=== PATIENT | male | born 1955 | race Caucasian/White ===

== ENCOUNTER → 2016-10-06 | Outpatient (CLI) | payer BC ==
[~2016-10-06] MED LIST: AMOX875T PO; ASPCH81X PO; ATOR-24 PO; BNC/20125 PO; LIPITOR PO; MELO7.5T6 PO; OXYC1TAB3 PO; TAMS0.4C38 PO
--- NOTE | 2016-10-06 17:24 | DIAGNOSTIC IMAGING REPORT ---
RIGHT KNEE 1 OR 2 VIEWS ROUTINE CLINICAL HISTORY: Right knee pain COMPARISON: None. DISCUSSION: There are moderate osteoarthritic changes present with moderate medial joint compartment narrowing. There is equivocal corticated bony fragment projected superior to the lateral tibial spine. There are degenerative changes within the patellofemoral joint. There is no dislocation. There are no acute fractures. There is a probable trace joint effusion IMPRESSION: Moderate osteoarthritic changes most pronounced involving the medial joint compartment and patellofemoral joint. Electronically signed by: Nicholas Galaviz M.D. 10/06/2016 5:23 PM Dictated Date/Time: 10/06/2016 5:21 PM
== END | disposition home or self-care (01) ==
LOC: C.RAD 16:50
PROVIDERS: ATTEND Family Medicine
DX: M25.561 Pain in right knee (principal); M17.11 Unilateral primary osteoarthritis, right knee

== ENCOUNTER 2017-02-11 17:21 | Emergency (ER) | payer BC ==
[~2017-02-11] VITALS: Ht 182.9 cm; Wt 108.9 kg
[~2017-02-11 17:21] MED LIST changes: -AMOX875T PO; -ATOR-24 PO; -OXYC1TAB3 PO
[2017-02-11 17:26] VITALS: TEMP 36.7; Ht 182.9 cm; Wt 108.9 kg
[2017-02-11] MEDS ORDERED: OXYMETAZOLINE HCL 0.05% NA SPR 15 ML BTL ONE (17:35)
[2017-02-11] MEDS ORDERED: LIDOCAINE 4% W/AFRIN NASAL SOLN 4ML EXT STA (17:40)
[2017-02-11] MEDS ORDERED: ATOR-24 PO (17:50)
[2017-02-11] MEDS ORDERED: SODIUM CHLORIDE 0.9% 1000ML 1,000 ML IV STA (18:14)
[2017-02-11] MEDS ORDERED: ONDANSETRON INJ 2 MG/ML 2 ML VIAL IV STA (18:27)
[2017-02-11 18:30] LABS: HEMATOCRIT 43.5 % (42-52); MEAN CELL VOLUME 93.8 fL (80-100); MEAN CORPUSCULAR HEMOGLOBIN 31.3 pg (25-34); MEAN CORPUSCULAR HGB CONC 33.3 g/dl (32-36); MEAN PLATELET VOLUME 11.5 fL (7.4-10.4); PLATELET COUNT 176 K/uL (130-400); RED BLOOD COUNT 4.64 M/uL (4.7-6.1); WHITE BLOOD COUNT 8.69 K/uL (4.8-10.8)
[2017-02-11 18:41] LABS: INR 0.9 (0.9-1.1)
[2017-02-11 18:46] LABS: BASO % 0.3 %; BASO ABS # 0.03 K/uL (0-0.2); COMPLETE YES; EOS % 1.8 %; IG% 0.2 %; LYMPH % 26.9 %; LYMPH ABS # 2.34 K/uL (1.2-3.4); MONO % 9.9 %; NEUT % 60.9 %
[2017-02-11 18:52] LABS: BUN/CREATININE RATIO 23.2 (10-20); CREATININE 0.96 mg/dl (0.60-1.40); POTASSIUM 3.9 mmol/L (3.5-5.1)
--- NOTE | 2017-02-11 19:13 | EMERGENCY ROOM VISIT NOTE ---
History Report prepared by Tracy: Ira Cornejo Under the Supervision of: Dr. Beau Dooley M.D. First contact with patient: 17:39 Chief Complaint: NOSE BLEED (MINOR) Stated Complaint: NOSE BLEED,HEADBUTTED BY DOG History of Present Illness The patient is a 61 year old male who presents to the Emergency Room with complaints of an episode of a severe nose bleed stating prior to arrival. The patient states that yesterday he was taking care of his sick dog and scared him. He reports that when he spooked him, his dog head-butted him in the nose. He states that it took a while, but he was able to get it to stop. He reports that today he blew his nose and it started bleeding again today. He states he came to the ED because he couldn't get the bleeding to stop this time. He notes that he takes Aspirin daily. He notes that he is experiencing pain up inside of his nose. He complains of lightheadedness. Source of History: patient Onset: prior to arrival Position: nose Symptom Intensity: severe Timing: other (episode) Note: The patient complains of pain up inside of his nose and being lightheaded. Review of Systems See HPI for pertinent positives & negatives. A total of 10 systems reviewed and were otherwise negative. Past Medical & Surgical Medical Problems: (1) Emphysema, unspecified (2) Hypertension Family History FHx: hypertension Social History Smoking Status: Former Smoker Smokeless Tobacco Use: No Alcohol Use: occasionally Marital Status: Housing Status: lives with significant other Occupation Status: employed Current/Historical Medications Scheduled Amoxicillin & Pot Clavulanate (Augmentin 875-125 mg), 1 TAB PO BID Aspirin (Aspirin Chewable), 81 MG PO QPM Atorvastatin (Lipitor), 1 TAB PO DAILY Meloxicam (Mobic), 7.5 MG PO QAM Olmesartan/Hctz (Benicar Hct 20/12.5), 0.5 TAB PO QPM Tamsulosin Hcl (Flomax), 2 TAB PO QPM Scheduled PRN Oxycodone Immediate Rel Tab (Roxicodone Ir), 1-2 TAB PO Q4H PRN for Severe Pain Allergies Coded Allergies: No Known Allergies (Unverified , 02/11/17) Physical Exam Vital Signs Date Time Temp Pulse Resp B/P Pulse Ox O2 Delivery O2 Flow Rate FiO2 5/28/17 18:49 72 02/11/17 18:33 80 16 156/95 96 Room Air 02/11/17 17:26 36.7 91 18 166/100 95 Room Air Physical Exam GENERAL: Patient is a healthy-appearing well-nourished HEAD: Normocephalic atraumatic. Diffusley bleeding anterior right side of nose. EYES: Ocular movements intact pupils equal and react to light OROPHARYNX mucous membranes are moist no exudates present no erythema or edema present. Blood running down oropharynx. NECK: Supple no nuchal rigidity CHEST: Good equal expansion LUNGS: Clear and equal to auscultation CARDIAC: Normal S1 and S2 ABDOMEN: Soft nontender no guarding BACK: No CVA tenderness EXTREMITIES: No pain upon palpation normal muscle strength in all groups no clubbing cyanosis or edema NEURO: Patient is following commands is answering questions appropriately. Alert and oriented x3 Cranial Nerves 2-12 grossly intact Medical Decision & Procedures Laboratory Results 02/11/17 18:15 Red Blood Count 4.64, Mean Corpuscular Volume 93.8, Mean Corpuscular Hemoglobin 31.3, Mean Corpuscular Hemoglobin Concent 33.3, Mean Platelet Volume 11.5, Neutrophils (%) (Auto) 60.9, Lymphocytes (%) (Auto) 26.9, Monocytes (%) (Auto) 9.9, Eosinophils (%) (Auto) 1.8, Basophils (%) (Auto) 0.3, Neutrophils # (Auto) 5.28, Lymphocytes # (Auto) 2.34, Monocytes # (Auto) 0.86, Eosinophils # (Auto) 0.16, Basophils # (Auto) 0.03 02/11/17 18:15 Test 02/11/17 18:15 White Blood Count 8.69 K/uL (4.8-10.8) Red Blood Count 4.64 M/uL (4.7-6.1) Hemoglobin 14.5 g/dL (14.0-18.0) Hematocrit 43.5 % (42-52) Mean Corpuscular Volume 93.8 fL (80-100) Mean Corpuscular Hemoglobin 31.3 pg (25-34) Mean Corpuscular Hemoglobin Concent 33.3 g/dl (32-36) Platelet Count 176 K/uL (130-400) Mean Platelet Volume 11.5 fL (7.4-10.4) Neutrophils (%) (Auto) 60.9 % Lymphocytes (%) (Auto) 26.9 % Monocytes (%) (Auto) 9.9 % Eosinophils (%) (Auto) 1.8 % Basophils (%) (Auto) 0.3 % Neutrophils # (Auto) 5.28 K/uL (1.4-6.5) Lymphocytes # (Auto) 2.34 K/uL (1.2-3.4) Monocytes # (Auto) 0.86 K/uL (0.11-0.59) Eosinophils # (Auto) 0.16 K/uL (0-0.5) Basophils # (Auto) 0.03 K/uL (0-0.2) RDW Standard Deviation 43.9 fL (36.4-46.3) RDW Coefficient of Variation 12.8 % (11.5-14.5) Immature Granulocyte % (Auto) 0.2 % Immature Granulocyte # (Auto) 0.02 K/uL (0.00-0.02) Prothrombin Time 10.0 SECONDS (9.0-12.0) Prothromb Time International Ratio 0.9 (0.9-1.1) Anion Gap 8.0 mmol/L (3-11) Est Creatinine Clear Calc Drug Dose 101.7 ml/min Estimated GFR () 97.8 Estimated GFR (Non- 84.4 BUN/Creatinine Ratio 23.2 (10-20) Calcium Level 9.0 mg/dl (8.5-10.1) Total Bilirubin 0.9 mg/dl (0.2-1) Direct Bilirubin 0.2 mg/dl (0-0.2) Aspartate Amino Transf (AST/SGOT) 17 U/L (15-37) Alanine Aminotransferase (ALT/SGPT) 34 U/L (12-78) Alkaline Phosphatase 71 U/L (45-117) Total Protein 7.3 gm/dl (6.4-8.2) Albumin 3.7 gm/dl (3.4-5.0) Lipase 127 U/L (73-393) Labs reviewed by ED physician. Medications Administered Medications (Trade) Dose Ordered Sig/Francisco Javier Route Start Time Stop Time Status Last Admin Dose Admin Oxymetazoline HCl 75 sprays 75 sprays STK-MED ONCE .ROUTE 02/11/17 17:35 02/11/17 17:36 DC 02/11/17 17:41 75 SPRAYS Sodium Chloride (Nss 1000ml) 1,000 ml @ 999 mls/hr Q1H1M STAT IV 02/11/17 18:14 02/11/17 19:14 DC 02/11/17 18:40 999 MLS/HR Ondansetron HCl (Zofran Inj) 4 mg NOW STAT IV 02/11/17 18:27 02/11/17 18:28 DC 02/11/17 18:40 4 MG ECG Indication: syncope Rate (beats per minute): 74 Rhythm: normal sinus Findings: RBBB, no acute ischemic change, no ectopy Comparison ECG Date: 05/30/2011 Change: no significant change ED Course 1735: Ordered Dxymetazoline HCl 2 sprays .ROUTE. 174: Ordered Lidocaine HCl 4 ml EXT. 174: Past medical records reviewed. The patient was evaluated in room B3. A complete history and physical examination was performed. 1813: Ordered NSS 1000 ml @ 999 mls/hr IV. 1826: Ordered Zofran Inj 4 mg IV. 1830: I reevaluated the patient and he is doing okay. 1833: I discussed the patient's case with Dr. Bradford. He has agreed to come see and evaluate the patient. 1934: Ordered Sodium chloride 2 sprays INH. 1944: Ordered Oxycodone HCl 1 homepack PO, Augmentin Tab 875 mg PO. 1999: Upon reexamination the patient is resting comfortably. I discussed results and treatment plan with the patient. She verbalizes agreement and understanding. The patient is ready for discharge. 2100: Ordered Augmentin Tab 875 mg PO. Medical Decision Medication Reconciliation: I attest that I have personally reviewed the patient' s current medication list. Blood Pressure Screening: Patient was found to have an elevated blood pressure and was referred to their primary care doctor for recheck and further treatment. Differential diagnosis: Etiologies such as anterior epistaxis, coagulopathy, traumatic injury, fracture , septal hematoma, posterior epistaxis as well as other pathologies were entertained. This is a 61-year-old male patient presents here she department after being head butted by his dog. I tried conservative measures at first to try and stop the bleeding however the patient bled right through tissues Afrin and epinephrine. At this point I tried to place an anterior posterior rapid right now as the patient continue to bleed however the patient had a vasovagal episode in the room and passed out. For this reason he was placed in the bed and an IV was established. Blood work was obtained the patient's hemoglobin is stable and he's got a normal creatinine. He was observed in the emergency department for 2 hours after his vasovagal episode. I did discuss the case with Dr. Bradford please see his note. I can place the patient on Augmentin. Consults Time Called: 1831 Consulting Physician: Dr. Teddy Nunn Returned Call: 1833 I discussed the patient's case with Dr. Bradford. He has agreed to come see and evaluate the patient. Impression Primary Impression: Epistaxis Additional Impressions: Hypertension Vasovagal episode Scribe Attestation The scribe's documentation has been prepared under my direction and personally reviewed by me in its entirety. I confirm that the note above accurately reflects all work, treatment, procedures, and medical decision making performed by me. Departure Information Dispostion Home / Self-Care Prescriptions Oxycodone Immediate Rel Tab (ROXICODONE IR) 5 Mg Tab 1-2 TAB PO Q4H Y for Severe Pain, #14 TAB Prov: Beau Dooley MD 02/11/17 Amoxicillin & Pot Clavulanate (Augmentin 875-125 mg) 1 Tab Tab 1 TAB PO BID for 7 Days, #14 TAB Prov: Beau Dooley MD 02/11/17 Referrals Oswaldo Foreman M.D. (PCP) Forms HOME CARE DOCUMENTATION FORM, IMPORTANT VISIT INFORMATION, WORK / SCHOOL INSTRUCTIONS Patient Instructions [facility] Additional Instructions - discharge home on pain medication per ED - recommend ED discharge home on antibiotic (augmentin for 1 week) - no nose blowing - sneeze with mouth open - saline spray starting tomorrow every 2 hrs while awake Follow up with Dr Bradford's office You were found to have an elevated blood pressure today (>120 sytolic or >90 diastolic). Per medicare guidelines, you need to follow up with this blood pressure screening with your Primary Care Physician (PCP). For a new PCP call [phone]. You received narcotic or benzodiazepene medication while in the emergency room today. Do not drive, operate heavy machinery, or drink alcohol under the influence of this medication. Take 1000 mg Tylenol every 6 hours Take oxy IR for breakthrough pain You have been examined and treated today on an emergency basis only. This is not a substitute for, or an effort to provide, complete comprehensive medical care. It is impossible to recognize and treat all injuries or illnesses in a single emergency department visit. It is therefore important that you follow up closely with Dr Foreman. Call as soon as possible for an appointment. Thank you for your time and consideration. I look forward to speaking with you again soon. Please don't hesitate to call us if you have any questions. Problem Qualifiers Additional Impressions: Hypertension Hypertension type: essential hypertension Qualified Codes: I10 - Essential ( primary) hypertension
--- NOTE | 2017-02-11 19:16 | Medical Consult ---
Consultation Date of Consultation: February 11, 2017. Attending Physician: History of Present Illness 61 yo male who was headbutted by his dog yesterday, which caused a nose bleed. Patient able to get it stopped. Was doing well until early this evening when he blew his nose and nosebleed started again. He came to the ED where apparently a balloon pack was attempted to be placed but was unable to be placed by the ED. Patient takes baby ASA daily. No other blood thinner. Denies any other symptoms. Denies any alleviating or exacerbating factors. Location of the bleed is right nare. Timing is intermittent. reports bleeding was fairly profuse. Family History FHx: hypertension Social History Smoking Status: Former Smoker Allergies Coded Allergies: No Known Allergies (Unverified , 02/11/17) Current Inpatient Medications Current Inpatient Medications Medications (Trade) Dose Ordered Sig/Francisco Javier Route Start Time Stop Time Status Last Admin Dose Admin Sodium Chloride (Nss 1000ml) 1,000 ml @ 999 mls/hr Q1H1M STAT IV 02/11/17 18:14 02/11/17 19:14 02/11/17 18:40 999 MLS/HR Review of Systems Constitutional: No chills, No fatigue, No fever, No problem reported, No sweats , No weakness, No weight loss Eyes: No diplopia, No discharge, No eye pain, No problem reported, No redness, No worsening of vision ENT: + problem reported (see HPI) Respiratory: No cough, No dyspnea at rest, No dyspnea on exertion, No hemoptysis, No problem reported, No shortness of breath, No sputum, No wheezing Cardiovascular: No PND, No chest pain, No claudication, No edema, No orthopnea , No palpitations, No problem reported Abdomen: No GI bleeding, No constipation, No diarrhea, No nausea, No pain, No problem reported, No vomiting Musculoskeletal: No calf pain, No joint pain, No muscle pain, No problem reported, No swelling Neurologic: No balance problems, No memory loss, No numbness/tingling, No paralysis, No problem reported, No vertigo, No weakness Hematologic / Lymphatic: No abnormal bleeding/bruising, No clotting problems, No night sweats, No problem reported, No swollen lymph nodes Physical Exam Date Time Temp Pulse Resp B/P Pulse Ox O2 Delivery O2 Flow Rate FiO2 5/28/17 18:49 72 02/11/17 18:33 80 16 156/95 96 Room Air 02/11/17 17:26 36.7 91 18 166/100 95 Room Air Procedure Attention was directed to the right nostril. The clot was evacuated with suction under headlight guidance. At this point several pieces of fibrillar were placed into the nose along the lateral nasal wall in the vicinity of the SPA and posterior to this. Further pieces were placed anteriorly. Floseal was then applied to the nose. Patient tolerated procedure well. General Appearance: WD/WN, no apparent distress Head: normocephalic, atraumatic Eyes: normal inspection, PERRL, EOMI ENT: + pertinent finding (right nare with dried blood. Anterior rhinoscopy revealed mildly deviated septum to the right side. Clot was evacuated from the nose. Some mild oozing from a septal abrasaion anteriorly. No evidence currently of profuse bleeding at this time. Posterior pharyngeal wall with old blood, no fresh blood. ) Neck: supple, thyroid normal Respiratory/Chest: normal breath sounds, no respiratory distress Skin: normal color, warm/dry Lymphatic: no adenopathy Laboratory Results Last 24 Hours Test 02/11/17 18:15 White Blood Count 8.69 K/uL Red Blood Count 4.64 M/uL Hemoglobin 14.5 g/dL Hematocrit 43.5 % Mean Corpuscular Volume 93.8 fL Mean Corpuscular Hemoglobin 31.3 pg Mean Corpuscular Hemoglobin Concent 33.3 g/dl Platelet Count 176 K/uL Mean Platelet Volume 11.5 fL Neutrophils (%) (Auto) 60.9 % Lymphocytes (%) (Auto) 26.9 % Monocytes (%) (Auto) 9.9 % Eosinophils (%) (Auto) 1.8 % Basophils (%) (Auto) 0.3 % Neutrophils # (Auto) 5.28 K/uL Lymphocytes # (Auto) 2.34 K/uL Monocytes # (Auto) 0.86 K/uL Eosinophils # (Auto) 0.16 K/uL Basophils # (Auto) 0.03 K/uL RDW Standard Deviation 43.9 fL RDW Coefficient of Variation 12.8 % Immature Granulocyte % (Auto) 0.2 % Immature Granulocyte # (Auto) 0.02 K/uL Prothrombin Time 10.0 SECONDS Prothromb Time International Ratio 0.9 Sodium Level 143 mmol/L Potassium Level 3.9 mmol/L Chloride Level 108 mmol/L Carbon Dioxide Level 27 mmol/L Anion Gap 8.0 mmol/L Blood Urea Nitrogen 22 mg/dl Creatinine 0.96 mg/dl Est Creatinine Clear Calc Drug Dose 101.7 ml/min Estimated GFR () 97.8 Estimated GFR (Non- 84.4 BUN/Creatinine Ratio 23.2 Random Glucose 119 mg/dl Calcium Level 9.0 mg/dl Total Bilirubin 0.9 mg/dl Direct Bilirubin 0.2 mg/dl Aspartate Amino Transf (AST/SGOT) 17 U/L Alanine Aminotransferase (ALT/SGPT) 34 U/L Alkaline Phosphatase 71 U/L Total Protein 7.3 gm/dl Albumin 3.7 gm/dl Lipase 127 U/L Assessment & Plan 61 yo male with epistaxis - controlled as above - discharge home on pain medication per ED - recommend ED discharge home on antibiotic (augmentin for 1 week) - no nose blowing - sneeze with mouth open - saline spray starting tomorrow every 2 hrs while awake
[2017-02-11] MEDS ORDERED: SODIUM CHLORIDE 0.65% NA SOLN 45 ML (OCEAN) STA (19:35)
[2017-02-11] MEDS ORDERED: AMOX875T PO (19:44)
[2017-02-11] MEDS ORDERED: OXYC1TAB3 PO (19:44)
[2017-02-11] MEDS ORDERED: OXYCODONE IR HOME PACK PO ONE (19:45)
[2017-02-11] MEDS ORDERED: AMOXICILLIN/CLAVULANATE TAB 875 MG TAB PO ONE ×2 (19:45→21:00)
[2017-02-11] MEDS ORDERED: EMPTY 8 DRAM VIAL ONE (19:58)
[2017-02-11 20:29] VITALS: BP 150/90; PULSE 81; O2SAT 95
== END 2017-02-11 20:31 | disposition home or self-care (01) ==
LOC: C.EDB 17:22
DX: R04.0 Epistaxis (principal); R55 Syncope and collapse; I10 Essential (primary) hypertension; J43.9 Emphysema, unspecified; Z82.49 Family history of ischemic heart disease and other diseases of the circulatory system; Z87.891 Personal history of nicotine dependence; Z79.82 Long term (current) use of aspirin; Z79.899 Other long term (current) drug therapy

== ENCOUNTER → 2017-02-27 | Outpatient (CLI) | payer BC ==
[~2017-02-27] MED LIST changes: +ATOR-24 PO; -LIPITOR PO; +OXYC1TAB3 PO
--- NOTE | 2017-02-28 06:20 | PAP/PSG TECHNICIAN REPORT ---
[facility] Java Application Developer Polysomnogram Report Study name: None Report date: 02/28/2017 Study date: 02/27/2017 Referring Physician: Duglas Alvarez M.D. Name: YANELI WILKES Interpreting Physician: Iker Smith D.O. Date of : 1955 Java Application Developer: Joie Johnson [facility]. Sex: Male Age: 61 StudyType: PSG PAP Weight: 248 lbs Height: 61 years, Height 5' 10" BMI: 35.58 Medications: Aspirin 81 mg, Flomax 0.4 mg, Benicar HCT, Aleve 220 mg, Atorvastatin 40 mg, Voltaren 1% Patient History 61 yr. old male here old male here for an updated titration sleep study. Patient has gained 20 pounds since last titration sleep study. Patients [place] Sleepiness Scale score is 5/24. Parameters Monitored NPSG: E1-M2, E2-M1, Fp1-M2, Fp2-M1, F3-M2, F4-M2, F4-M1, C3-M2, C4-M2, C4-M1, O1-M2, O2-M2, O2-M1, T3-M2, T4-M1, P3-M2, P4-M1, CHIN1, CHIN2, HR, EKG, Legs, PFLOW, SNOR, FLOW, CFLOW, Tidal Volume, THOR, ABDO, SpO2, PLTH, CPRESS, ETCO2 Wave, ETCO2, pH Sleep Architecture Sleep Stages Time at Lights Off 9:24:40 PM STAGES Time (min.) TST (%) Time at Lights On 5:41:40 AM Wake 96.5 -- Total Recording Time (TRT) 497.00 min. N1 42.5 11 Total Sleep Period (TSP) 482.0 min. N2 210.0 52 Total Sleep Time (TST) 400.5min. N3 43.0 11 Awake Time 96.5 min. REM 105.0 26 Wake after Sleep Onset 81.5 min. Sleep Efficiency (SE) 81 % Sleep Onset Latency (LAURA) 15.0 min. Number of Stage 1 Shifts None Awakenings 25 Stage Changes 105 Number of REM periods 16 REM 105.0 26 REM Latency 50.0 min. NREM 295.5 74 Body Position Analysis Supine Right Left Side Prone Vertical Total Sleep Time (min.) 146.0 214.6 62.4 277.00 0.0 0.0 Total Sleep Time (%) 31% 54% 16% 69 0% N/A% Total Sleep Time REM (min.) 50.5 50.5 4.0 None 0.0 0.0 Total Sleep Time NREM (min.) 73.0 164.1 58.4 None 0.0 0.0 Intermittent Wake (min.) 22.5 58.7 15.2 None 0.0 0.0 Total Sleep Period (%) 30% None None None None None Arousals Myoclonus (PLM) * Events Count Index Events Count Index Spontaneous 4 1 Events Awake (PLMW) 106 65.9 Respiratory 2 0.3 Events Asleep w/ Arousal (PLMA) 26 3.9 PLM 26 4 Events Asleep w/o Arousal (PLMS) 667 99.9 Snoring 2 0 Total Asleep 693 103.8 Total 34 5 Total 799 96 Respiratory Analysis * CA OA MA CH H RERA Total Count 0 2 0 0 11 0 13 Index 0.0 0.3 0.0 0 1.6 0 1.9 Mean Duration 0.0 16.4 0.0 0.00 28.2 0.0 26.4 Longest Duration 0.0 17.6 0.0 0.00 0.0 0.0 47.1 Respiratory Event Summary Total Supine ~Supine Right Left Prone REM NREM Apneas Count 2 0 2 2 0 N/A 0 2 Index 0.3 0 0 0.6 0.0 N/A 0 0 Hypopneas (4% Desat) Count 11 0 11 8 3 N/A 7 4 Index 1.6 0.0 2 2.2 2.9 N/A 4.0 0.8 Apneas & All Hypopneas Count 13 0 13 10 3 N/A 7 6 Index 1.9 0 3 3 3 N/A 4.0 1.2 Respiratory Events (Knurling Machine Tender+All Hyp+RERA) Count 13 0 13 10 3 N/A 7 6 Index 1.9 0 3 2.8 2.9 N/A 4.0 1.2 Respiratory Related Arousal Count 2 0 2 2 0 N/A 0 2 Index 0.3 0 0 1 0 N/A 0 0 Snoring Analysis Supine Right Left Prone REM NREM Total Snore duration 5.4 min Snores count 18 176 19 N/A 15 198 213 Snore mean duration 1.5 Sec Snores index 9 49 18 N/A 8.6 40.2 31.9 TST with snoring (%) 1.3% Desaturation Event Summary: Minimum %SpO2 Event Count Mean/Min/Max Duration(sec.) Desaturation Index % Time In Bed > 90 28 33.6 / 7.5 / 60.0 3.5 99.2 86 - 90 1 25.8 / 25.8 / 25.8 15.3 0.8 81 - 85 0 N/A 0.0 0.0 76 - 80 0 N/A 0.0 0.0 71 - 75 0 N/A 0.0 0.0 66 - 70 0 N/A 0.0 0.0 61 - 65 0 N/A 0.0 0.0 56 - 60 0 N/A 0.0 0.0 51 - 55 0 N/A 0.0 0.0 < 50 0 N/A 0.0 0.0 Total REM NREM Awake <50% 0.0 min. 0.0 min. 0.0 min. 0.0 min. 51 - 60% 0.0 min. 0.0 min. 0.0 min. 0.0 min. 61 - 70% 0.0 min. 0.0 min. 0.0 min. 0.0 min. 71 - 80% 0.0 min. 0.0 min. 0.0 min. 0.0 min. 81 - 90% 4.0 min. 1.4 min. 1.3 min. 1.3 min. 91 - 100% 486.9 min. 103.6 min. 294.2 min. 89.1 min. Average 95 95 95 95 Minimum SpO2 78 88 84 78 Desaturation Event Index 3.4 4.6 0.8 9.9 # Desat. Events below 89% 4 1 1 2 Time(%) with Saturation below 89% 0.2 0.1 0.1 0.1 Time(min.) with Saturation below 89% 1.1 0.3 0.4 0.4 Time (mins) REM (mins) NREM (mins) % of TST SpO2 Below 90% 5 2 N3 0.4 SpO2 Below 88% 2 0 0 0 Heart Rate Analysis Min (bpm) Max (bpm) Average (bpm) Awake 47 127 69 NREM 47 84 55 REM 45 73 52 Overall 45 84 54 Supplemental O2 Values Minimum O2 level: None Value Start Time End Time Java Application Developer Comments slept in the right, left, and supine positions. Cardiac arrhythmia and frequent PLMs noted. No bruxism noted. CPAP was initiated at +4 CMH2O room air and up-titrated to an optimal level of +7 CMH2O Cflex 1, which nearly eliminated all respiratory events and snoring. A standard ResMed Brown FX ResMed was used during titration. awoke to use the restroom once during the night. stated, that was a normal night. The final report will be interpreted and signed by a sleep physician. The completed physician report will then be placed in the patient medical record. Therapy Event: Therapy (cm H20) 4 5 6 7 Total Time at Pressure (min.) 70.9 84.9 148.1 193.0 TST at Pressure (min.) 51.0 38.9 141.1 169.5 # Periods 1 1 1 1 Sleep Onset (min.) 14.9 3.0 0.0 0.0 REM Onset (min.) 64.9 N/A 17.1 41.5 Sleep Efficiency % 72 45 95 87 Wakefulness (%) 28.0 54.2 4.7 12.2 Wakefulness (min.) 19.9 46.0 7.0 23.5 NREM 1 (%) 4.9 10.0 8.8 9.1 NREM 1 (min.) 3.5 8.5 13.0 17.5 NREM 2 (%) 24.7 35.8 43.3 50.8 NREM 2 (min.) 17.5 30.4 64.1 98.0 NREM 3 (%) 36.7 0.0 11.5 0.0 NREM 3 (min.) 26.0 0.0 17.0 0.0 REM (%) 5.6 0.0 31.7 28.0 REM (min.) 4.0 0.0 47.0 54.0 # Arousals 2 6 11 15 Arousal Index 2.4 9.3 4.7 5.3 # Snore 1 26 116 70 Snore Index 1.2 40.1 49.3 24.8 AHI 3.5 3.1 3.4 0.0 AHI Supine N/A N/A N/A 0.0 AHI Non-Supine 3.5 3.1 3.4 0.0 NREM AHI 0.0 3.1 2.6 0.0 REM AHI 45.0 N/A 5.1 0.0 RDI 3.5 3.1 3.4 0.0 # Obstructive 0 1 1 0 # Central Ap 0 0 0 0 # Mixed 0 0 0 0 # Hypopneas 3 1 7 0 RERAS 0 0 0 0 Total Respiratory Events 3 2 8 0 Time Below SpO2 89.00% (min.) 0.3 0.0 0.4 0.0 Mean NREM SpO2 (%) 93 94 95 95 Mean REM SpO2 (%) 91 N/A 94 95 Mean Sleep SpO2 (%) 93 94 95 95 Min NREM SpO2 (%) 92 89 84 93 Min REM SpO2 (%) 88 N/A 91 92 Position Supine (min.) 0.0 0.0 0.0 123.5 Position Non-supine (min.) 51.0 38.9 141.1 46.0 LM Index Sleep 105.9 158.9 144.6 56.6 LM Index NREM 106.0 158.9 175.4 63.9 LM Index REM 105.0 N/A 83.0 41.1 Mean Heart Rate (bpm) 61 60 53 52 Min Heart Rate (bpm) 55 51 46 45
--- NOTE | 2017-03-02 08:12 | POLYSOMNOGRAPH REPORT ---
PRIMARY CARE PHYSICIAN: Oswaldo Foreman MD REFERRING PHYSICIAN: Dr. Alvarez. CLINICAL DATA: The patient is a 61-year-old male with a history of sleep apnea. He has been on nasal CPAP therapy. It is unknown what his pressures are set at. He has a history of pulmonary hypertension. The patient has gained 20 pounds. He has a history of fatigue. His [place] score is 5/24. This study was an in-lab CPAP retitration. His current BMI is 35.58. SLEEP ARCHITECTURE: The total sleep period was 482 minutes. The total sleep time was 400.5 minutes. The sleep efficiency was mildly reduced at 81%. The sleep latency was normal at 15 minutes. Wake after sleep onset was increased to 81.5 minutes. The REM latency was slightly shorter than normal at 50 minutes. Sleep consisted of stage N1 of 11%, stage N2 of 52%, stage N3 of 11%, and stage REM 26%. AROUSAL DATA: The patient had a total of 34 arousals including 4 spontaneous arousals, 2 respiratory arousals, 26 PLM arousals, and 2 snoring arousals. The arousal index is 5. PLM DATA: The patient had a total of 693 periodic limb movements for an index severely elevated at 103.8. There were 26 arousals related to the limb movements for a PLM arousal index of 3.9. EKG: The underlying cardiac rhythm was normal sinus. He had occasional PVCs. The cardiac rates ranged from 45 to 84 beats per minute with an average of 54 beats per minute. RESPIRATORY DATA: The patient's nocturnal events were treated with nasal CPAP. He had a total of 13 respiratory events including 2 obstructive apneas and 11 hypopneas. Hypopneas were scored according to the 4% desaturation rule. The apnea-hypopnea index was normal at 1.9 events per hour. The longest apnea was 17.6 seconds. The mean duration of hypopnea was 28.2 seconds. OXIMETRY DATA: The average saturation was 95%. The minimum saturation was 78%. This is likely technical and not valid. There was a total of 2 minutes less than 88% and this is likely felt to be technical as well. Overall, the oxygenation appeared to be normal. 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 Cardiac arrhythmia and frequent PLMs were noted. No bruxism noted. CPAP was initiated at 4 cm of water pressure at room air and up titrated to an optimal level of 7 cm with C-Flex 1. This eliminated the respiratory events and snoring. A standard ResMed Brown FX was used during titration. IMPRESSIONS: 1. Obstructive sleep apnea -- resolved with nasal CPAP at 7 cm. 2. Periodic limb movement disorder -- severe. 3. Cardiac arrhythmia -- occasional premature ventricular contraction. COMMENTS: The patient had just a mild decrease in sleepy efficiency. He titrated very easily up to his final pressure. At the final pressure of 7 cm, he had no respiratory events over 3 hours of time. His apnea hypopnea index was 0 at the final pressure. His oxygenation was normal. He did have very frequent periodic limb movements. Clinical correlation is advised in this regard. As noted previously, it is unknown what his prior CPAP pressures were set at, but 7 cm clearly seems to be more than adequate. RECOMMENDATIONS: 1. It is advised that the nasal CPAP be set at 7 cm with a C-Flex of 1. 2. It is advised that he have compliance data obtained in 1-2 months to be certain that he is wearing his CPAP regularly and that his sleep apnea is being resolved. 3. The patient has frequent limb movements during sleep, but with few arousals. It is advised that he have a serum ferritin level to evaluate for the possibility of iron deficiency, which may be contributing to the limb movements. 4. The patient has an elevated body mass index of 35.58. A weight reduction program as advised. 5. It is suggested that the patient avoid sleeping in the supine position as there typically is more respiratory event supine. During this study, he spent 30% of the night in the supine position. 6. If the patient needs a new mask, it would be suggested that he be prescribed a ResMed Brown FX mask. [facility]
== END | disposition home or self-care (01) ==
LOC: C.NEUR 21:00
PROVIDERS: ATTEND Internal Medicine Critical Care Medicine
DX: G47.33 Obstructive sleep apnea (adult) (pediatric) (principal)

== ENCOUNTER → 2018-01-25 | Day surgery (SDC) | payer OTHER ==
[2018-01-15 14:17] VITALS: BMI 33.0
[~2018-01-25] VITALS: Ht 182.9 cm; Wt 111.4 kg
[~2018-01-25] MED LIST changes: -BNC/20125 PO; +DICL1GEL12 TD; +LIDOCAINE HCL 2% 2 ML VIAL (20MG/ML) ONE; +LOSA100T33 PO; +MIDAZOLAM HCL 1 MG/ML 2ML VIAL ONE; -OXYC1TAB3 PO; +PROPOFOL IV EMULSION 10 MG/ML 20 ML VIAL ONE
[2018-01-25 13:29] VITALS: Ht 182.9 cm; Wt 111.4 kg
--- NOTE | 2018-01-25 13:46 | Endo History and Physical ---
History & Physical Date of Service: January 25, 2018. Chief Complaint: Hx polyps Referring Physician: Dr Foreman History of Present Illness For colonoscopy Past Surgical History Hx Cardiac Surgery: No Hx Internal Defibrillator: No Hx Pacemaker: No Hx Abdominal Surgery: No Hx of Implantable Prosthesis: No Hx Post-Op Nausea and Vomiting: No Hx Cancer Surgery: No Hx Thoracic Surgery: No Hx Orthopedic: Yes (RT KNEE TUMOR EXCISION) Hx Urinary Tract Surgery: No Family History None Social History Smoking Status: Former Smoker Hx Substance Use: Yes (MARIJUANA IN YOUNGER YEARS, NONE CURRENTLY) Hx Alcohol Use: Yes (1-2 GLASSES OF WINE DAILY) Allergies Coded Allergies: No Known Allergies (Unverified , 01/25/18) Current Medications Reported Home Medications Medications Dose Route/Sig Max Daily Dose Days Date Category Voltaren 1% Top Gel (Diclofenac Sodium (Topical)) 1 % Gel TD DIRECTED 01/15/18 Reported Hyzaar 12.5MG/100MG (Hctz/Losartan) 1 Tab Tab 1 Tab PO DAILY 30 01/15/18 Reported Lipitor (Atorvastatin Calcium) 40 Mg Tab 1 Tab PO DAILY 02/11/17 Reported Mobic (Meloxicam) 7.5 Mg Tab 7.5 Mg PO QAM 08/08/16 Reported Aspirin Chewable (Aspirin) 81 Mg Chew 81 Mg PO QPM 08/08/16 Reported Flomax (Tamsulosin Hcl) 0.4 Mg Cap 2 Tab PO QPM 08/08/16 Reported Vital Signs Weight (Kilograms): 111.36 Height (Feet): 6 Height (Inches): 0 Physical Exam General Appearance: WD/WN Respiratory/Chest: Respiratory effort: no dyspnea Cardiovascular: Heart Auscultation: RRR Abdomen: Inspection & Palpation: soft Assessment and Plan Hx polyps for colonoscopy
--- NOTE | 2018-01-25 14:21 | Discharge Instructions ---
Endoscopy Patient Instructions Date / Procedure(s) Performed January 25, 2018. Colonoscopy Allergy Information Coded Allergies: No Known Allergies (Unverified , 01/25/18) Discharge Date / Findings January 25, 2018. polyps, diverticulosis Medication Instructions Restart Stopped Medication(s): resume meds Reported Home Medications Medications Dose Route/Sig Max Daily Dose Days Date Category Voltaren 1% Top Gel (Diclofenac Sodium (Topical)) 1 % Gel TD DIRECTED 01/15/18 Reported Hyzaar 12.5MG/100MG (Hctz/Losartan) 1 Tab Tab 1 Tab PO DAILY 30 01/15/18 Reported Lipitor (Atorvastatin Calcium) 40 Mg Tab 1 Tab PO DAILY 02/11/17 Reported Mobic (Meloxicam) 7.5 Mg Tab 7.5 Mg PO QAM 08/08/16 Reported Aspirin Chewable (Aspirin) 81 Mg Chew 81 Mg PO QPM 08/08/16 Reported Flomax (Tamsulosin Hcl) 0.4 Mg Cap 2 Tab PO QPM 08/08/16 Reported Provider Instructions Activity Restrictions - No exercising or heavy lifting for 24 hours. - Do not drink alcohol the day of the procedure. - Do not drive a car or operate machinery until the day after the procedure. - Do not make any important decisions or sign important papers in 24 hours after the procedure. Following Day: - Return to full activity which may include returning to work/school. Diet Start your diet with liquids and light foods (jello, soup, juice, toast). Then eat your usual diet if not nauseated. Treatment For Common After Affects For mild abdominal pain, bloating, or excessive gas: - Rest - Eat lightly - Lie on right side Follow-Up Information Follow-up with DR REYNOLDS as scheduled Anesthesia Information What You Should Know You have had a procedure that required some medicine to reduce anxiety and discomfort. This treatment is called moderate sedation. After receiving the treatment, you may be sleepy, but you will be able to breathe on your own. The effects of the treatment may last for several hours. Follow these instructions along with Activity/Diet recommendations noted above: * Do NOT do anything where dizziness or clumsiness would be dangerous. * Rest quietly at home today, then you can be up and about tomorrow. * Have a responsible person stay with you the rest of today. * You may have had an I.V. today. If so, you may take the dressing off later today. Recommendations Call your doctor if: * Trouble breathing * Continuous vomiting for more than 24 hours * Temperature above 101 degrees * Severe abdominal pain or bloating * Pain not relieved by pain medicine ordered * There is increased drainage or redness from any incision * A large amount of rectal bleeding greater than 2-3 tablespoons. (If you had a polyp/s removed or have hemorrhoids, a small amount of blood - from the rectum is to be expected.) * You have any unanswered questions or concerns. IN THE EVENT OF A SERIOUS EMERGENCY, GO TO THE NEAREST EMERGENCY ROOM Your discharge instructions were prepared by provider Olvin Kilpatrick. Patient Instructions Signature Page Denny Schuster Patient (or Guardian) Signature/Date: I have read and understand the instructions given to me by my caregivers. Caregiver/RN/Doctor Signature/Date: The above-named patient and/or guardian has received patient instructions on this date. + Original Patient Signature Page (only) stays with chart. Please make copy for patient.
--- NOTE | 2018-01-25 14:28 | GI REPORT ---
Patient Name: Denny Schuster Procedure Date: 01/25/2018 1:54 PM Date of : 1955 Admit Type: Outpatient Age: 62 Gender: Male Attending MD: Olvin Kilpatrick MD Procedure: Colonoscopy Providers: Olvin Kilpatrick MD Referring MD: Oswaldo Foreman Indications: Personal history of colonic polyps Medicines: Midazolam 2 mg IV, Propofol total dose 200 mg IV, Lidocaine 20 mg IV Complications: No immediate complications. Estimated Blood Loss: Estimated blood loss was minimal. Procedure: Pre-Anesthesia Assessment: - Prior to the procedure, a History and Physical was performed, and patient medications, allergies and sensitivities were reviewed. The patient's tolerance of previous anesthesia was reviewed. - The risks and benefits of the procedure and the sedation options and risks were discussed with the patient. All questions were answered and informed consent was obtained. After I obtained informed consent, the scope was passed under direct vision. Throughout the procedure, the patient's blood pressure, pulse, and oxygen saturations were monitored continuously. The scope was introduced through the anus and advanced to the cecum, identified by appendiceal orifice and ileocecal valve. The colonoscopy was performed without difficulty. The patient tolerated the procedure well. The quality of the bowel preparation was excellent. Findings: Three sessile polyps were found in the ascending colon. The polyps were 2 to 3 mm in size. These polyps were removed with a cold snare. Resection and retrieval were complete. Estimated blood loss was minimal. A few diverticula were found in the sigmoid colon and ascending colon. Impression: - Three 2 to 3 mm polyps in the ascending colon, removed with a cold snare. Resected and retrieved. - Diverticulosis in the sigmoid colon and in the ascending colon. Recommendation: - Discharge patient to home (ambulatory). - Continue present medications. - Await pathology results. - Return to primary care physician PRN. Olvin Kilpatrick M.D. Olvin Kilpatrick MD 01/25/2018 2:27:46 PM This report has been signed electronically. Note Initiated On: 01/25/2018 1:54 PM Number of Addenda: 0 I attest to the content of the Intraoperative Record and orders documented therein, exceptions below {[id number]}
--- NOTE | 2018-01-25 14:38 | Anesthesiology Progress Note ---
Anesthesia Post Op Note Date & Time January 25, 2018 at 14:38 Vital Signs Vital Signs Past 12 Hours Date Time Temp Pulse Resp B/P (MAP) Pulse Ox O2 Delivery O2 Flow Rate FiO2 01/25/18 14:28 36.2 71 20 143/82 (102) 96 Room Air 01/25/18 13:40 36.6 64 20 150/94 (112) 96 Room Air Notes Mental Status: alert / awake / arousable, participated in evaluation Pt Amnestic to Procedure: Yes Nausea / Vomiting: adequately controlled Pain: adequately controlled Airway Patency, RR, SpO2: stable & adequate BP & HR: stable & adequate Hydration State: stable & adequate Anesthetic Complications: no major complications apparent
[2018-01-25 14:58] VITALS: BP 139/87; PULSE 61; O2SAT 97
== END | disposition home or self-care (01) ==
LOC: C.GI 13:00
PROVIDERS: ATTEND Internal Medicine Gastroenterology
DX: Z86.010 Personal history of colon polyps (principal); D12.2 Benign neoplasm of ascending colon; K57.30 Diverticulosis of large intestine without perforation or abscess without bleeding; G47.33 Obstructive sleep apnea (adult) (pediatric); I10 Essential (primary) hypertension; J44.9 Chronic obstructive pulmonary disease, unspecified; Z98.890 Other specified postprocedural states; Z87.891 Personal history of nicotine dependence; Z79.899 Other long term (current) drug therapy; Z79.82 Long term (current) use of aspirin

== ENCOUNTER 2020-02-10 07:56 | Inpatient (IN) ==
--- NOTE | 2019-11-12 15:44 | PAT Medication Instructions ---
Medication Instructions Date of Service November 12, 2019 Home Medications albuterol sulfate 90 mcg/actuation breath activated powder inhaler 2 puffs INH Q4H aspirin 81 mg tablet,delayed release 81 mg PO QAM atorvastatin 40 mg tablet 40 mg PO QPM diclofenac sodium 1 % topical gel 4 gm TOP QID PRN naproxen sodium 220 mg capsule 440 mg PO BID PRN tamsulosin 0.4 mg capsule 0.8 mg PO QAM amlodipine 10 mg PO QDD hydrochlorothiazide 12.5 mg PO QAM lisinopril 40 mg PO QAM meloxicam 15 mg PO QAM tiotropium bromide [Spiriva Respimat] 2 puffs INH QAM ASK your surgeon for instructions meloxicam 15 mg PO QAM naproxen sodium 220 mg capsule 440 mg PO BID PRN STOP taking 24 hours before surgery diclofenac sodium 1 % topical gel 4 gm TOP QID PRN DO NOT take the morning of surgery hydrochlorothiazide 12.5 mg PO QAM lisinopril 40 mg PO QAM Take morning of surgery With a small sip of water, OTHERWISE NOTHING TO EAT OR DRINK AFTER MIDNIGHT: albuterol sulfate 90 mcg/actuation breath activated powder inhaler 2 puffs INH Q4H (use if needed; please bring with you to hospital day of surgery if possible) tamsulosin 0.4 mg capsule 0.8 mg PO QAM tiotropium bromide [Spiriva Respimat] 2 puffs INH QAM Take evening before surgery albuterol sulfate 90 mcg/actuation breath activated powder inhaler 2 puffs INH Q4H atorvastatin 40 mg tablet 40 mg PO QPM amlodipine 10 mg PO QDD Other Notes If you have any questions please call us at [phone] or [phone] or [phone] or [phone]
--- NOTE | 2019-11-14 10:11 | Anesthesiology Consultation ---
Date of Service November 14, 2019 Assessment & Plan (1) Encounter for pre-operative examination: Chart Review Chart Review: Pending: Refer to Additional Notes / Consult section (surgeon ordered cardio and PCP clearance and 11/17/19 ECHO ) and Patient seen in Pre Admission Testing Awaiting surgeon ordered cardio clearance, last cardio note, and scheduled ECHO on 11/17/19. Awaiting surgeon ordered PCP clearance (11/18) Teaching & Discussion Pre-Anesthesia Teaching/Discussion Notes: Instructed NPO after midnight before surgery,except medications with 15 cc of water. Medication instructions provided according to the PAT guidelines. History Surgery Operation Date: 12/09/19 09:50 Proposed Procedures p Right Total Knee Arthroplasty - Adan Root MD Height/Weight Height: 6 ft Weight: 111 kg Allergies Allergy/AdvReac Type Severity Reaction Status Date / Time No Known Allergies Allergy Verified 11/11/19 15:40 Medications Home Medications Medication Instructions Recorded Confirmed Last Taken albuterol sulfate 90 mcg/actuation 2 puffs INH Q4H ea 06/10/19 11/11/19 Unknown breath activated powder inhaler aspirin 81 mg tablet,delayed 81 mg PO QAM 06/10/19 11/11/19 Unknown release atorvastatin 40 mg tablet 40 mg PO QPM 06/10/19 11/11/19 Unknown diclofenac sodium 1 % topical gel 4 gm TOP QID PRN 06/10/19 11/11/19 Unknown naproxen sodium 220 mg capsule 440 mg PO BID PRN cap 06/10/19 11/11/19 Unknown tamsulosin 0.4 mg capsule 0.8 mg PO QAM 06/10/19 11/11/19 Unknown amlodipine 10 mg PO QDD 11/11/19 11/11/19 Unknown hydrochlorothiazide 12.5 mg PO QAM 11/11/19 11/11/19 Unknown lisinopril 40 mg PO QAM 11/11/19 11/11/19 Unknown meloxicam 15 mg PO QAM 11/11/19 11/11/19 Unknown tiotropium bromide [Spiriva 2 puffs INH QAM 11/11/19 11/11/19 Unknown Respimat] Past Medical History Medical History Anomalous pulmonary venous return Chronic obstructive pulmonary disease Hyperlipidemia Hypertension Sleep apnea USES CPAP Spondylisthesis Exercise / Class Metabolic Activity II 4-5 Yardwork/Stairs/Walk up hill (NO SIG CHEST PAIN OR SOB WITH STAIRS- GOES SLOW ) Past Surgical History Surgical History History of colonoscopy Hx of excision of mass RIGHT KNEE Past Anesthesia History No Hx of Anesthesia Complications and No Family Hx of Anesthesia Complications History of PONV No Hx of PONV and No Hx of Motion Sickness Social History Smoking Status: Former smoker (SMOKED X 15 YEARS 1.5-2PPD) tobacco type: cigarettes Do You Dip or Chew Tobacco: No Smoking End Date: 27 YR Hx Alcohol Use: Yes Alcohol type: beer and wine alcohol intake frequency: 0-2 drinks per day (2 DRINKS PER DAY ) Hx Substance Use: No Review of Systems GORDO- uses CPAP Patient denies chest pain, shortness of breath, dyspnea on exertion, reflux, cough, wheezing, palpitations. No hx of seizures, stroke, PR. No hx of blood clots or blood transfusions No recent steroid use Physical Exam Vital Signs VITALS BP 117/77 P 77 TEMP 97.8 SP02 94% RESP 16 Constitutional no acute distress ENMT Mouth: no TMJ clicking Thyromental Distance: < 3.5 Finger Breadths (3.0) Mallampati Class: II Full upper denture, partial lower denture Neck + limited neck extension (significant ) Respiratory normal respiratory effort; no respiratory distress Auscultation: lungs clear to auscultation bilaterally and + diminished lung sounds (mildly throughout ); no wheezes Cardiovascular Rate/Rhythm: regular rate and regular rhythm Heart Sounds: no murmur Vessels: no carotid bruit Extremities: no edema Musculoskeletal Spine: no pain with cervical ROM Neurologic moves all extremities Psychiatric Orientation: alert Testing Laboratory Results Blood Type A Positive 11/14/19 10:17 Antibody Screen NEGATIVE 11/14/19 10:17 Laboratory Tests 11/14/19 11/14/19 11/14/19 10:17 10:17 10:17 WBC 4.79 L Hgb 13.9 L Hct 41.9 L Plt Count 176 PT 9.4 INR 0.9 APTT 24.6 Sodium 139 Potassium 4.6 Chloride 106 Carbon Dioxide 26 BUN 28 H Creatinine 1.16 Glucose 96 Electrocardiogram Date: 01/06/19 SR with occ PVCs. RBBB. Compared to December 31, 2017- PVCs now present Chest X-Ray Date: 06/11/19 Atherosclerosis of the aortic arch. Cardiac silhouette enlarged. Mild pulmonary vascular prominence. No focal opacity. No pleural effusion or pneumothorax
[2020-02-05 12:22] LABS: Basophils # (auto) 0.02 K/uL (0-0.2); Basophils % (auto) 0.4 %; Eosinophils # (auto) 0.15 K/uL (0-0.5); Eosinophils % (auto) 3.2 %; Hematocrit (blood only) 40.7 % (42-52); Hemoglobin 13.7 g/dL (14.0-18.0); Immature Granulocytes # (auto) 0.02 K/uL (0.00-0.02); Immature Granulocytes % (auto) 0.4 %; Lymphocytes # (auto) 1.01 K/uL (1.2-3.4); Lymphocytes % (auto) 21.5 %; Mean Corpuscular Hemoglobin 31.6 pg (25-34); Mean Corpuscular Hgb Conc 33.7 g/dL (32-36); Mean Corpuscular Volume 93.8 fL (80-100); Mean Platelet Volume 12.3 fL (7.4-10.4); Monocytes # (auto) 0.53 K/uL (0.11-0.59); Monocytes % (auto) 11.3 %; Neutrophils # (auto) 2.97 K/uL (1.4-6.5); Neutrophils % (auto) 63.2 %; Platelet Count 190 K/uL (130-400); RDW Coefficient of Variation 13.1 % (11.5-14.5); RDW Standard Deviation 44.8 fL (36.4-46.3); Red Blood Count 4.34 M/uL (4.7-6.1)
[2020-02-05 12:27] LABS: INR 0.9 (0.9-1.1); Partial Thromboplastin Ratio 0.9; Partial Thromboplastin Time 25.1 Seconds (21.0-31.0); Prothrombin Time 9.8 Seconds (9.0-12.0)
[2020-02-05 12:44] LABS: Alanine Aminotransferase 41 U/L (12-78); Aspartate Aminotransferase 24 U/L (15-37); BUN Creatinine Ratio 20.9 (10-20); Bilirubin Direct 0.3 mg/dl (0-0.2); Blood Urea Nitrogen 20 mg/dl (7-18); Calcium 9.5 mg/dl (8.5-10.1); Carbon Dioxide 27 mmol/L (21-32); Chloride 105 mmol/L (98-107); Est GFR (African American) 98.2; Est GFR (Non-African American) 84.7; Glucose 110 mg/dl (70-99); Potassium 4.3 mmol/L (3.5-5.1); Sodium 138 mmol/L (136-145)
[2020-02-05 12:47] LABS: Alkaline Phosphatase 72 U/L (45-117); Bilirubin,Total 1.2 mg/dl (0.2-1); Total Protein 8.1 gm/dl (6.4-8.2)
--- NOTE | 2020-02-06 13:46 | Communication Note ---
Date of Service: February 06, 2020 Travel assessment/history reviewed - low risk at this time - will be reviewed the morning of surgery. Routine preop covid screen was done 02/05/2020 and still awaiting results. Will need to verify results DOS.
[~2020-02-10 07:56] MED LIST changes: +ACETAMINOPHEN 500 MG TAB PO SCH; -ASPCH81X PO; -ATOR-24 PO; +CEFAZOLIN 2000MG 2,000 MG/15 ML SYR IV SCH; +CeleBREX 200 MG CAP PO SCH; -DICL1GEL12 TD; +FAMOTIDINE 20 MG TAB PO SCH; +GABAPENTIN 600 MG DOSE PO SCH; -LIDOCAINE HCL 2% 2 ML VIAL (20MG/ML) ONE; -LOSA100T33 PO; +LR 500ML BOLUS, THEN 15ML/HR IV SCH; +LR 60ML/HR IV SCH; -MELO7.5T6 PO; +METOCLOPRAMIDE HCL 10 MG TABLET PO SCH; -MIDAZOLAM HCL 1 MG/ML 2ML VIAL ONE; +OXYCODONE HCL 10 MG TABCR (OXYCONTIN) PO SCH; -PROPOFOL IV EMULSION 10 MG/ML 20 ML VIAL ONE; +ROPIVACAINE 0.5% HCL/PF 150 MG, BUPIVACAINE 0.5% MPF 30 ML, EPINEPHrine 0.15 MG, Ketoro... INFIL SCH; -TAMS0.4C38 PO; +TRAMADOL HCL 50 MG TABLET PO SCH; +TRANEXAMIC ACID 1,000 MG **IV Intra-op IV SCH; +TRANEXAMIC ACID 1,000 MG **IV Pre-op IV SCH; +cloNIDine HCL 0.1 MG/24 HR TRANSDERM SYS TD SCH; +dexAMETHasone 4 MG TAB PO SCH
[2020-02-10] MEDS ORDERED: LIDOCAINE HCL 2% 2 ML VIAL/AMP(20MG/ML) INFIL ONE (08:26)
[2020-02-10] MEDS ORDERED: MIDAZOLAM HCL 1 MG/ML 2ML VIAL ONE ×3 (08:26→11:49)
[2020-02-10] MEDS ORDERED: PROPOFOL IV EMULSION 10 MG/ML 20 ML VIAL IV ONE ×3 (08:26→11:35)
[2020-02-10] MEDS ORDERED: fentaNYL citrate 100 MCG/2 ML VIAL ONE (08:26)
[2020-02-10] MEDS ORDERED: ATROPINE SULFATE 0.1 MG/ML 10ML SYR IV PRN (09:06)
[2020-02-10] MEDS ORDERED: fentaNYL citrate 100 MCG/2 ML VIAL IV PRN (09:06)
[2020-02-10] MEDS ORDERED: ONDANSETRON INJ 2 MG/ML 2 ML VIAL IV PRN ×2 (09:06→14:07)
[2020-02-10] MEDS ORDERED: ePHEDrine sulfate 50 MG/ML AMP IV PRN (09:06)
--- NOTE | 2020-02-10 09:26 | History & Physical Bridge Note ---
Date of Service February 10, 2020 History & Physical Bridge Note I have examined the patient, reviewed the History & Physical and in the interval since the performance of the History & Physical I have noted the following changes of clinical significance: no changes noted
[2020-02-10] MEDS ORDERED: ORTHO JOINT ANESTHETIC ONE (09:47)
[2020-02-10] MEDS ORDERED: BACITRACIN INJ 50,000 UNIT VIAL ONE (09:47)
[2020-02-10] MEDS ORDERED: PHENYLEPHRINE 100MCG/ML 5ML SYR ONE (10:08)
[2020-02-10] MEDS ORDERED: ePHEDrine sulfate 50 MG/ML AMP ONE (10:21)
--- NOTE | 2020-02-10 12:57 | Operative Report ---
Post Operative Report Pre & Post Diagnosis Operation Date: 02/10/20 10:00 Pre-Op Diagnosis: Right Knee Degeneartive Joint Disease Post-Op Diagnosis: Right Knee Degeneartive Joint Disease I identified the patient and participated in the time-out.: Yes Procedure Operation Date: 02/10/20 10:00 Actual Procedures p Right Total Knee Arthroplasty(Right) - Adan Root MD Surgeon Adan Root MD Director [employer] vero Estimated Blood Loss 10 Findings Consistent with Post-Op Diagnosis Specimens bone and soft tissue Drains none Anesthesia Type MAC Spinal Regional Complications none Disposition Accompanied Patient To Recovery: No Disposition: Recovery Room Indications Mr. Gomez is 64 years old. He has severe arthritis of his right knee refractory to nonsurgical methods of management and wishes to have his knee replaced. Description of Procedure Informed consent obtained. Patient identified. He identified the operative site as the right knee. I marked with my initials. Preop surgical timeout performed and a preop dose of IV antibiotics was given. He was positioned supine on the OR table with all bony prominences inspected and padded. A tourniquet was applied to the right thigh a bump under the right hip and a padded post under the right calf. The leg was prepped and draped in the usual sterile fashion. The examination showed range of motion 0/3/125 with 1+ mid position MCL laxity knee otherwise stable. DVT prophylaxis with foot pumps. Postoperatively early mobility Lovenox mechanical devices. Limb exsanguinated with the Esmarch. Tourniquet inflated 250 mmHg. A midline longitudinal incision was made curving laterally to incorporate a 4 cm lateral parapatellar incision. A very prominent infrapatellar branch of the saphenous nerve was identified dissected as far medially as possible and amputated. The patellar tendon was identified and the peritenon was elevated up and a medial flap was created. Medial arthrotomy was performed. Retropatellar fat pad resected. Synovial reflection in the lateral gutter was released. Soft tissue on the anterior aspect of the distal femur was resected. A conservative medial release was performed. The knee was then able to be flexed with the patella everted. There were grade 4 changes on the medial compartment with bony eburn ation and wear. Grade 2 and 3 changes on the medial patella. Synovium around the patella was resected. Lateral compartment relatively normal. The cruciates were intact and were resected. Medial meniscus deficient and chronically torn. It was resected. The tibia was unable to be subluxated. A photogrammetry airplane pilot hole was drilled just in front of the lateral tibial spine and an intramedullary akosua was inserted. The guide was set to resect 10 off of the high side corresponding to to off the medial side. The guide was pinned into place and alignment was confirmed with the extra medullary alignment akosua. This confirmed both varus valgus alignment and parallel slope. This cut was then made. The tibia was sized to a 4. Marginal osteophytes throughout the knee were removed as encountered. A photogrammetry airplane pilot hole was made into the distal femur and the intramedullary alignment akosua was inserted. The guide was set to resect 12 mm of bone at a 7 degree right valgus angle corresponding to preoperative templating. This cut was then made which showed revealed a slightly tight but otherwise symmetric extension gap at 10 mm. The trans-epicondylar axis was marked out. The distal femoral sizing block was applied and sized to a 5. The appropriate external rotation drill holes were made which matched the aft forementioned epicondylar axis. Subsequent to that the cutting block was applied. Anterior down. Rectangular flexion space. These cuts were then made. Lamina correction warden inserted and posterior osteophytes particularly medial were removed. At this time the flexion space was assessed. It was found to be slightly tighter medially but difficult to except a 10 mm spacer. I then went ahead and performed a more extensile distal and posterior medial release of the MCL and medial soft tissues. The uncapped medial bone was removed and posterior medial osteophytes were debrided. The semimembranosus attachment was released. The extension gap was asymmetric 10. The flexion gap at this time was also a symmetric but slightly tighter 10. The box cutting guide was applied and lateralized pinned into place and the cut was made. Posterior osteophytes were removed. The size 5 femur fit well. The size 4 tibia was applied pinned in place and the keel was drilled and punched. At this time there was difficulty in reducing the knee getting the tibia to slide back under the femur with the polyethylene in place. Despite several careful attempts I was unable to do that. Given the releases were complete and the tibial bone was resected. I thought that the posterior slope may be off slightly. I went back to extension with the spacer blocks and reassessed alignment and slope which both were fine. All bony cuts were then reverified. I then went ahead and reapplied the 3 degree tibial cutting block. [place] was confirmed with the 0 block. The 3 block was not supplied and this cut was made and carefully assessed with a flat surface. The size 4 tibia was replaced. Trialing again was performed with a much easier complete symmetric reduction. The knee was stable in full extension and at 90 and had 1+ LCL opening at 30 degrees and was stable to MCL stressing at 30 degrees. Then went ahead and prepared the patella. The patella measured 25 mm in thickness. The guide was set to preserve 14 mm of bone. The cut was made and smoothness was ensured. Some medial cartilage was removed and kept contained. Patella was aligned with the knee in slight flexion and propria drill holes were made. The patella was medialized and distal lysed as much as possible. The 41 patella was selected. Patella tracked fine with no hands technique. Components were removed. Canals were plugged. Ortho joint mix injected in the back the knee and all bony surfaces were prepared meticulously with pulsatile lavage and then dried. 2 bags of Simplex P cement were mixed up and then while in a doughy state the femur tibia and patella were cemented in place with a trial spacer held in full extension. Once the cement hardened the tourniquet was let down after 124 minutes of inflation and meticulous hemostasis was performed followed by copious pulsatile lavage. The back the knee was inspected for cement and a few small pieces were removed medially. The final spacer was inserted after reassessing stability and the knee was reduced. Composite patellar thickness was 26 mm. Parkman assisted flexion with extensor mechanism closed was 125 degrees. The knee was fully straight and neutrally aligned and the after mentioned laxity profile applied. The extensor mechanism was closed with interrupted #2 FiberWire above the equator of the patella and running and interrupted #1 Vicryl below. The skin was then closed in layers using 0 and 2-0 Vicryl along with trent. The leg was cleaned with wet and dry sponges and soft sterile dressing was applied Xeroform 4 x 4's ABD full-length Amandepe wrap and knee immobilizer. Was awakened from anesthesia without difficulty and taken to the recovery room in stable condition. The resected bone and soft tissue were sent for specimen. Counts were correct. Blood loss is estimated to be 10 cc. Preoperative TXA given. There were no complications. Patient will be rehabilitated according to the total knee protocol. Components inserted with a J[employer]J PFC Sigma rotating platform knee a size 5 right posterior stabilized femur a 10 mm thick mobile-bearing posterior stabilized polyethylene insert a 41 mm 3 peg oval dome patella and a size 4 rotating platform keeled tibia. I attest to the content of the Intraoperative Record and any orders documented therein. Any exceptions are noted below.
--- NOTE | 2020-02-10 13:08 | Operative Report ---
Post Operative Report Pre & Post Diagnosis Operation Date: 02/10/20 10:00 Pre-Op Diagnosis: Right Knee Degeneartive Joint Disease Post-Op Diagnosis: Right Knee Degeneartive Joint Disease I identified the patient and participated in the time-out.: Yes Procedure Operation Date: 02/10/20 10:00 Actual Procedures p Right Total Knee Arthroplasty(Right) - Adan Root MD Surgeon Adan Root MD [employer] vero Estimated Blood Loss 10 Findings Consistent with Post-Op Diagnosis Specimens bone and soft tissue Anesthesia Type MAC Spinal Regional Complications none Disposition Accompanied Patient To Recovery: Yes Disposition: Recovery Room Description of Procedure Patient was taken to the operating room, placed under spinal anesthesia with peripheral nerve block. Time out performed, given 2 gm IV Ancef for surgical prophylaxis. I was present during the entire case and assisted with positioning, retraction, exposure, hardware implantation, irrigation, cementing, closure and dressings. Please see Dr. Root's operative report for further detail regarding the procedure. Patient was awakened and taken to the recovery room in stable condition. I attest to the content of the Intraoperative Record and any orders documented therein. Any exceptions are noted below.
--- NOTE | 2020-02-10 13:49 | XRay Report ---
XR knee RT 1 or 2V routine HISTORY: 64 years-old Male Surgical Post Op right knee total joint arthroplasty COMPARISON: Leg length study radiographs 11/14/2019 TECHNIQUE: 2 views of the right knee FINDINGS: Right knee total joint arthroplasty and patella resurfacing. Anterior midline skin trent are noted along with expected postsurgical soft tissue swelling and deep tissue air. IMPRESSION: Right knee total joint arthroplasty with expected postoperative findings. ACT 112: Negative or not required by law. The above report was generated using voice recognition software. It may contain grammatical, syntax o r spelling errors. Electronically signed by: Natan Luna M.D. 02/10/2020 1:47 PM
--- NOTE | 2020-02-10 13:56 | Anesthesiology Progress Note ---
Date of Service February 10, 2020 Anesthesia Post Procedure Vital Signs Vital Signs: Temp Pulse Pulse Resp BP BP Pulse Ox 02/10/20 13:45 76 14 108/75 96 02/10/20 13:35 97.3 F L 79 13 114/86 97 02/10/20 13:25 78 15 116/67 97 02/10/20 13:15 83 14 115/78 97 02/10/20 13:07 96.8 F L 79 16 105/75 98 02/10/20 08:17 99.0 F 84 18 128/79 97 Transfer of Care Handoff Completed per policy Notes Mental Status: alert / awake / arousable and participated in evaluation Patient Amnestic to Procedure: Yes Nausea / Vomiting: adequately controlled Pain: adequately controlled Airway Patency, RR, SpO2: stable & adequate BP & HR: stable & adequate Hydration State: stable & adequate Neuraxial Anesthesia: was administered and sensory block is resolving Anesthetic Complications: no major complications apparent and Pt Satisfied with anesthetic care
[2020-02-10] MEDS ORDERED: TRAMADOL HCL 50 MG TABLET PO PRN (14:07)
[2020-02-10] MEDS ORDERED: NALOXONE HCL 0.4 MG/1 ML VIAL/CARP IV PRN (14:07)
[2020-02-10] MEDS ORDERED: DiphenhydrAMINE HCL 50 MG/ML VIAL IV PRN (14:07)
[2020-02-10] MEDS ORDERED: METOCLOPRAMIDE HCL INJ 5 MG/ML 2 ML VIAL IV PRN (14:07)
[2020-02-10] MEDS ORDERED: HydrALAZINE HCL 20 MG/ML VIAL IV PRN (14:07)
[2020-02-10] MEDS ORDERED: bisacodyL 10 MG SUPP PR PRN (14:07)
[2020-02-10] MEDS ORDERED: OXYCODONE HCL IR 5 MG TAB (IMMEDIATE RELEASE) PO PRN (14:07)
[2020-02-10] MEDS ORDERED: HYDROmorphone INJ 0.5 MG/0.5 ML SYR IV PRN (14:07)
[2020-02-10] MEDS ORDERED: MAGNESIUM HYDROXIDE SUSP 30 ML UDC PO PRN (14:07)
[2020-02-10] MEDS: CHECK CLONIDINE PATCH PLACEMENT SCH ×4 (14:20→23:38)
[2020-02-10] MEDS ORDERED: ALBUTEROL HFA 8 GM INHALER INH PRN (14:43)
[2020-02-10] MEDS: KETOROLAC TROMETHAMINE 15 MG/ML VIAL IV SCH ×2 (15:37→21:24)
[2020-02-10] MEDS: ACETAMINOPHEN 500 MG TAB PO SCH ×2 (15:38→21:24)
--- NOTE | 2020-02-10 16:23 | Orthopedic Progress Note ---
Date of Service February 10, 2020 Assessment & Plan (1) Degenerative joint disease of knee, right: WBAT RLE, OOB as tolerated with assistance, use walker to assist with ambulation Ice to right knee as needed for pain/swelling Knee immobilizer when out of bed. Start Lovenox 30 mg BID tomorrow AM Regular diet ordered. Home medications ordered. Patient may use own CPAP - order placed. Pain medication as prescribed. Dr. Root present for today's visit. Will re-eval in AM. Case management for disposition, plan for discharge to home tomorrow with home health. Present on Admission?: Yes Admission and Anticipated Discharge Date Admission Date: February 10, 2020 Anticipated date of discharge: 02/11/20 Subjective Patient lying in bed comfortably. states that he does have some pain in his right knee at this time, but it's manageable. He states that he's had to move it around to find a comfortable spot. Otherwise feels normal. Denies chest pain, shortness of breath, nausea and vomiting. Has not voided yet. Has not eaten yet. Has not been out of bed. Physical Exam Physical Exam: Exam of right knee: Dressings clean, dry, intact. Right foot with normal sensation dorsally, 1+ dorsalis pedis pulse. Plantar surface of foot with mild decreased sensation. Weakness with dorsiflexion of EHL and flexion of toes. Ankle dorsiflexion is normal. Results & Data ([facility]) Vital Signs (Past 12 Hours) Vital Signs Temp Pulse Pulse Pulse Resp BP BP 02/10/20 15:21 36.4 C L 74 16 164/86 H 02/10/20 14:45 72 16 114/73 02/10/20 14:10 36.4 C L 73 17 116/80 02/10/20 13:45 76 14 108/75 02/10/20 13:35 36.3 C L 79 13 114/86 02/10/20 13:25 78 15 116/67 02/10/20 13:15 83 14 115/78 02/10/20 13:07 36 C L 79 16 105/75 02/10/20 08:17 37.2 C 84 18 128/79 Pulse Ox 02/10/20 15:21 97 02/10/20 14:45 97 02/10/20 14:10 96 02/10/20 13:45 96 05/26/20 13:35 97 02/10/20 13:25 97 02/10/20 13:15 97 02/10/20 13:07 98 02/10/20 08:17 97
[2020-02-10] MEDS: SODIUM CHLORIDE 0.9% 1000ML 1,000 ML IV SCH (17:34)
[2020-02-10] MEDS: CEFAZOLIN 2000MG 2,000 MG/15 ML SYR IV SCH (17:34)
[2020-02-10] MEDS: DOCUSATE SODIUM 100 MG CAP PO SCH (20:53)
[2020-02-10] MEDS ORDERED: AMLODIPINE BESYLATE 5 MG TAB PO SCH (21:00)
[2020-02-10] MEDS ORDERED: ATORVASTATIN 40 MG TAB PO SCH (21:00)
[2020-02-10] MEDS ORDERED: SENNA 8.6 MG TAB PO SCH (21:00)
[2020-02-11] MEDS: CEFAZOLIN 2000MG 2,000 MG/15 ML SYR IV SCH (01:31)
[2020-02-11] MEDS: SODIUM CHLORIDE 0.9% 1000ML 1,000 ML IV SCH (01:32)
[2020-02-11] MEDS: KETOROLAC TROMETHAMINE 15 MG/ML VIAL IV SCH ×2 (03:06→09:58)
[2020-02-11] MEDS: ACETAMINOPHEN 500 MG TAB PO SCH ×2 (05:31→13:56)
--- NOTE | 2020-02-11 06:23 | Electrocardiogram Report ---
Test Reason : Blood Pressure : / mmHG Vent. Rate : 076 BPM Atrial Rate : 076 BPM P-R Int : 146 ms QRS Dur : 120 ms QT Int : 400 ms P-R-T Axes : 047 010 009 degrees QTc Int : 450 ms Normal sinus rhythm Right bundle branch block Abnormal ECG When compared with ECG of 11-FEB-2017 19:56, No significant change was found Confirmed by Irvin Mcgill ([id number]) on 02/10/2020 4:05:51 PM Referred By: Adan Root Confirmed By:Irvin Mcgill
[2020-02-11 06:27] LABS: Hematocrit (blood only) 33.7 % (42-52); Hemoglobin 11.2 g/dL (14.0-18.0); Mean Corpuscular Hemoglobin 31.6 pg (25-34); Mean Corpuscular Hgb Conc 33.2 g/dL (32-36); Mean Corpuscular Volume 95.2 fL (80-100); Mean Platelet Volume 11.6 fL (7.4-10.4); Platelet Count 143 K/uL (130-400); RDW Standard Deviation 45.6 fL (36.4-46.3); Red Blood Count 3.54 M/uL (4.7-6.1); White Blood Count 6.39 K/uL (4.8-10.8)
[2020-02-11 06:43] LABS: BUN Creatinine Ratio 27.4 (10-20); Calcium 8.7 mg/dl (8.5-10.1); Creatinine Clr Calc Pharmacy 76.1 ml/min; Est GFR (Non-African American) 61.2; Potassium 4.3 mmol/L (3.5-5.1)
[2020-02-11] MEDS ORDERED: dexAMETHasone 4 MG TAB PO SCH (08:00)
[2020-02-11] MEDS: CHECK CLONIDINE PATCH PLACEMENT SCH (08:15)
[2020-02-11] MEDS: DOCUSATE SODIUM 100 MG CAP PO SCH (08:21)
[2020-02-11] MEDS ORDERED: MULTIVITAMIN TAB PO SCH (09:00)
[2020-02-11] MEDS ORDERED: TAMSULOSIN HCL 0.4 MG CAP PO SCH (09:00)
[2020-02-11] MEDS ORDERED: ENOXAPARIN INJ 30 MG/0.3 ML SYR SQ SCH (09:00)
[2020-02-11] MEDS ORDERED: ASPIRIN 81 MG ECTAB PO SCH (09:00)
[2020-02-11] MEDS ORDERED: lisinopriL 40 MG TAB PO SCH (09:00)
[2020-02-11] MEDS ORDERED: hydroCHLOROthiazide 25 MG TAB PO SCH (09:00)
[2020-02-11] MEDS ORDERED: SODIUM CHLORIDE 0.9% 1000ML 1,000 ML IV ONE (09:20)
--- NOTE | 2020-02-11 09:43 | Progress Notes ---
DATE: 02/11/2020 He is resting comfortably in bed status post right total knee arthroplasty. No significant problems have been noted. He has been up and out of bed, going to the bathroom, etc. A little bit of nausea. No chest pain or shortness of breath. Pain is reasonably well controlled. His vital signs are stable. He is afebrile. Urine output is on the lower side 0.13 mL per kilogram per hour. His labs are noted. Hemoglobin 11, hematocrit 34, platelet count is 143. His PRP is noted. BUN is slightly high and his BUN and creatinine ratio is 27.4. He does report a little bit of odd sensation under the big toe, but otherwise has normal sensation and 1+ dorsalis pedis pulse and 5/5 ankle and toe plantar flexion and dorsiflexion strength. His dressing is clean and dry. He might be little bit on the dry side. He reports no difficulty voiding. Continue Flomax. Give fluid bolus. Do PT today. If pain well controlled and goals are met, may consider discharge home today. We talked about this with him and went over his followup and things to watch out for, medications, wound care, bathing, etc. This will be detailed on his discharge information. He will follow up with us in 2 weeks.
--- NOTE | 2020-02-11 10:49 | Discharge Summary ---
Date of Service February 11, 2020 Discharge Data Consultations 02/10/20 14:07 Consult Case Management - Discharge Planning Routine Procedures Performed Operation Date: 02/10/20 10:00 Actual Procedures p Right Total Knee Arthroplasty(Right) - Adan Root MD Hospital Course (1) Degenerative joint disease of knee, right: Patient was admitted to [facility] after undergoing an elective right total knee arthroplasty by Dr. Root. His surgery was performed on February 10, 2020. Informed consent was obtained. His surgery was performed with spinal anesthesia, sedation, and a peripheral nerve block. He tolerated the procedure well without any intraoperative complications. Prior to surgery he was given 2 g of IV Ancef for surgical prophylaxis and this was continued for 24 hours after surgery. Postoperative x-rays were obtained and showed a stable right total knee arthroplasty. He was allowed out of bed, partial weightbearing on his right lower extremity with the assistance of a walker and a knee immobilizer. Physical therapy and occupational therapy consults were obtained to assess safety for disposition possibly to home. Case management was also consult it for disposition needs. His home medications were continued and we did not require a hospitalist consult during this inpatient stay. His vital signs remained stable. He tolerated a regular diet during his inpatient stay. He did develop some mild acute blood loss anemia which was monitored during his inpatient stay and his CBC will be rechecked as an outpatient. He was started on Lovenox for DVT prophylaxis on postoperative day one. He was instructed to do 30 mg twice daily for 2-4 weeks after the procedu re. His pain was well controlled during his inpatient stay and he was provided oxycodone, tramadol, Toradol, Tylenol, IV Dilaudid and a preoperative pain cocktail for management of his pain. He was instructed to continue his exercises taught in the hospital while at home. He did have a little low urine output on post op day 1 and was given 1000mL of saline as a bolus. He was set up with home health and in-home nursing to start at time of discharge. He will have his dressings changed on postoperative day 4 and at that time may start to shower. He did not develop any shortness of breath, chest pain, nausea or vomiting during his inpatient stay. He did well out of bed and was deemed safe for discharge to his home on February 11, 2020. Discharge instructions were discussed. All questions were answered. He will follow up as scheduled with Dr. Root in approximately 2 weeks. Scripts were provided for physical therapy, CBC, oxycodone, tramadol. He was instructed to get over the counter Colace, Senokot and Tylenol. Discharge Instructions New Medicine: * You will likely be taking one or more of these medications: 1. Lovenox - You will be on Lovenox for 2-4 weeks after surgery to prevent blood clots. Aspirin, 81 mg is OK to take while on Lovenox 2. Oxycodone - Take, as directed, when you need it, every four to six hours to control your pain. 3. Tramadol - Take, as directed, when you need it, every four to six hours to control your pain. 4. Colace & Senokot - Take to prevent constipation which can be caused by narcotics. These can be bought [id number] at the pharmacy * The most common side effects of pain medicine and iron are nausea and constipation. If nausea or constipation is too much of a problem or if you have any questions about your new medicines or doses, call [facility] at . We will try to help you manage these issues. "VERY IMPORTANT TO READ AND REVIEW" Blood Clots and Blood Thinning Medicine: * You are given Lovenox during the immediate post-operative period to lessen the risk of blood clots forming in your legs and/or lungs. Lovenoxis usually given for 2-4 weeks after surgery. * The prescription is for 30 mg injections. At discharge, you should understand your dose and take it all at the same time every day, twice daily * You need to get your blood checked on Sunday, script provided at discharge. Physical Therapy: * Do your physical therapy at home. These are the exercises you learned while in the hospital (quad sets, leg raises, calf pumps, gluteal squeezes, knee bending, and heel props.) You should do these exercises 3-4 times per day. * You will either go to inpatient rehab ([facility]), home with Home Therapy and nursing or home with outpatient rehab. You should do rehab with the therapist 2-3 times per week. You should do therapy on your own daily. * You may bear full weight on your leg with crutches or walker unless otherwise advised. Home Exercise: * You were shown a series of exercises (heel props, heel slides, etc.) in the hospital. Do these exercises three to four times each day including the exercises you were shown in physical therapy. Walking: * You may be up for short periods of time. Standing and walking for 1-2 hours at a time is usually okay. You should not stand or walk for excessive periods of time as this may Cause increased pain and swelling. SELF CARE INSTRUCTIONS AFTER TOTAL KNEE REPLACEMENT A. You may need to continue a physical therapy program after discharge from the hospital. There are several options available to you. Your doctor will assist you in selecting the best one for you. 1. An out-patient facility 2 to 3 times a week for therapy or home therapy. 2. Continue working on all exercises taught to you in the hospital. Your goals should be to increase bending of your knee to 90 degrees and beyond and to fully straighten your knee. B. Your therapist will notify you when you are able to progress from a walker to a cane. C. Wear TEDS as much as possible.~ They may be removed at night for laundering. D. Do not place a pillow behind your knee when resting. A pillow at your ankle is okay. E. Ice your knee 15-20 minutes every 2-3 hours and elevate it above the level of your heart. F. You may shower on the fourth day after surgery using regular soap and water. Do not submerge until the wound is completely healed (approximately 2 weeks). Keep the dressings on until Sunday. Then you may remove dressings and sh ower. Use your knee immobilizer to get in and out of the shower, sit to shower, may let soap and water run over incision. After showering, reapply light dressing to your incision and then apply SHAISTA stocking. G. Anyone who is touching your surgical incision area should wash their hands and wear gloves. H. Keep your incision covered with gauze pads under the SHAISTA hose until it is dry. VERY IMPORTANT TO READ AND REVIEW A. YOU WILL BE GIVEN AN ORDER AT DISCHARGE FOR CBC (BLOOD WORK). PLEASE HAVE THIS DONE INSTRUCTED. PLEASE CALL OUR OFFICE AFTER YOUR BLOODWORK IS COMPLETE SO WE CAN TRACK YOUR RESULTS. IF YOU ARE GOING TO OUTPATIENT PHYSICAL THERAPY, YOU WILL NEED TO GO TO OUTPATIENT TESTING TO HAVE IT DRAWN. B. There are a few signs you need to watch for after you are home. Call [facility] if you notice any of the followin. Increased severe knee pain. Some pain is expected especially when you exercise. 2. Increased swelling in your leg or knee; pain or swelling of the calf muscle in either lower leg. 3. Any fluid drainage from the incision. 4. Shortness of breath or chest pain. 5. Numbness and tingling in the surgical extremity C. Please call [facility] at if you have any concerns or questions about your operation or recovery. The doctor or his nurse will return your call promptly. D. Do not have any elective dental work or other elective procedures done for 6 weeks after your knee replacement. When you have any invasive procedure (dental cleaning, extraction, colonoscopy etc) performed, you will need to take antibiotics to prevent infection from developing in your artificial joint. Tell your other health care providers you have an artificial joint. My office will supply you with further information and the antibiotics. Call your doctor if: * Temperature above 101 degrees F. * Pain not relieved by pain medicine ordered. * Increased drainage or redness from incision. * Notify your doctor with any questions or concerns. Follow-up Visit: You will follow-up with Dr. Root 10-14 days after surgery, as scheduled. The office number is . Avoid all tobacco products. If you need help to stop smoking, call [place] at . This is a free call.
[2020-02-11] MEDS ORDERED: CeleBREX 200 MG CAP PO SCH (21:00)
== END 2020-02-11 15:40 | disposition home health service (06) | DRG 470 ==
LOC: ASU 07:56 → 3N 13:14